=== PATIENT | male | born 1950 | race Two or more races ===

== ENCOUNTER → 2017-06-06 | Outpatient (CLI) | payer MEDICARE ==
[~2017-06-06] MED LIST: ALLO-119 PO; ATOR40TA24 PO; BENZ200C15 PO; CELE-1 PO; CYCL10TA29 PO; DICL100G39 ASDIRECTED; DICL100G39 TD; GLUC1TAB13 PO; GUAI120L3 PO; HYDR-4309 PO; POTA99TA15 PO; PRED20TA6 PO; ROS10 PO; ROSU20TA23 PO; TRAM-420 PO; UBID1CAP3 PO; [UNRECOGNIZED DRUG - CODE] BC
--- NOTE | 2017-06-06 14:33 | RADIOLOGY IMAGING REPORT ---
FACILITY: [facility] PATIENT NAME: Hansel Issa : 1950 MR: [id number] V: [id number] EXAM DATE: ORDERING PHYSICIAN: BRINA FLORES TECHNOLOGIST: Location: [facility] - [place] Patient: Hansel Issa : 1950 Visit/Account:[id number] Date of Sevice: 06/06/2017 Exam type: CHEST PA AND LAT History: influenza Comparison: None. Findings: The lungs are free of acute effusions, infiltrates or edema. The cardiac silhouette is normal in siz e. The trachea is in midline. There are moderate spondylotic changes of the thoracic spine IMPRESSION: 1. No acute cardiopulmonary process is seen Report Dictated By: Vania Ponce MD at 06/06/2017 2:28 PM Report E-Signed By: Vania Ponce MD at 06/06/2017 2:29 PM WSN:[email or web address]
== END ==
LOC: RAD 13:25
PROVIDERS: ATTEND Internal Medicine
DX: J11.1 Influenza due to unidentified influenza virus with other respiratory manifestations (principal)
CPT/HCPCS: 71046

== ENCOUNTER → 2017-08-16 | Outpatient (CLI) | payer MEDICARE ==
[2017-08-16 15:23] LABS: PLATELET COUNT, AUTOMATED 207 K/uL (150-450)
== END ==
LOC: LAB 14:59
PROVIDERS: ATTEND Internal Medicine
DX: M54.10 Radiculopathy, site unspecified (principal); R51 Headache; E78.5 Hyperlipidemia, unspecified
CPT/HCPCS: 36415; 82040; 82247; 82310; 82374; 82435; 82565; 82947; 84075; 84132; 84155; 84295; 84450; 84460; 84520; 85025

== ENCOUNTER → 2017-08-18 | Outpatient (CLI) | payer MEDICARE ==
[~2017-08-18] MED LIST changes: +GADOBENATE 529MG/1ML 15ML VIAL IVP ONE
--- NOTE | 2017-08-18 10:39 | RADIOLOGY IMAGING REPORT ---
FACILITY: [facility] PATIENT NAME: Hansel Issa : 1950 MR: [id number] V: [id number] EXAM DATE: [id number] ORDERING PHYSICIAN: BRINA FLORES TECHNOLOGIST: Location: [facility] [place] Patient: Hansel Issa : 1950 Visit/Account:[id number] Date of Sevice: 08/18/2017 Exam type: ORBITS FOREIGN BODY 1 VIEW History: Pre-MRI Comparison: None. Findings: There are no radiopaque foreign bodies project over the orbits which would preclude this patient unde rgoing MRI. Paranasal sinuses are well aerated. Nasal septum is deviated towards the right superiorly and left inferiorly. Metallic dental hardware is noted. IMPRESSION: 1. There are no radiopaque foreign bodies projecting over the orbits which would preclude this patien t undergoing MRI. Report Dictated By: Josh Shea MD at 08/18/2017 10:33 AM Report E-Signed By: Josh Shea MD at 08/18/2017 10:34 AM WSN:[id number]
--- NOTE | 2017-08-18 12:46 | RADIOLOGY IMAGING REPORT ---
FACILITY: [facility] - [place] PATIENT NAME: Hansel Issa : 1950 MR: [id number] V: [id number] EXAM DATE: [id number] ORDERING PHYSICIAN: BRINA FLORES TECHNOLOGIST: [place] [facility] [place]el Issa : 1950 Visit/Account:[id number] Date of Sevice: 08/18/2017 EXAMINATION: MRI Lumbar spine without intravenous contrast HISTORY: Low back pain. COMPARISON: Lumbar spine radiographs dated 03/14/2017. TECHNIQUE: Multi-planar, multi-sequence lumbar spine MRI was performed without intravenous contrast administration. FINDINGS: Alignment: Normal. Vertebral marrow signal: Negative. Distal thoracic cord: Negative. Conus: negative, terminates at L1 Cauda equina: Thickening of the nerve roots at S1 (series 2, image 7; series 7, image 24) Paravertebral soft tissues: Negative. Visualized abdominal and pelvic structures: Negative. Disc Spaces: Lower thoracic spine: Negative. L1-2: Mild disc height loss with circumferential disc bulge and superimposed left central disc extrus ion. Mild facet hypertrophy. Moderate to severe left lateral recess stenosis with possible impingem ent of the traversing nerve roots. No significant neural foraminal stenosis. L2-3: Mild disc height loss with circumferential disc bulge and facet hypertrophy. Mild spinal canal stenosis. Mild bilateral neural foraminal stenosis. L3-4: Mild circumferential disc bulge and facet hypertrophy. No significant spinal canal stenosis. Mild bilateral neural foraminal stenosis. L4-5: Minimal disc bulge. Mild facet hypertrophy, left greater than right. No significant spinal ca nal stenosis. Mild bilateral neural foraminal stenosis. L5-S1: Small broad-based posterior disc protrusion. Mild facet hypertrophy. No significant spinal c anal stenosis. Mild bilateral neural foraminal stenosis. IMPRESSION: 1. Focal thickening of the nerve roots of the cauda equina at S1 (series 2, image 7; series 7, image 24). Postcontrast lumbar spine MRI is recommended. The axial postcontrast images should extend thr ough the sacrum. Differential diagnosis includes metastasis, primary tumor such as schwannoma, and a rachnoiditis. 2. Multilevel degenerative disc disease and facet hypertrophy, most severe at L1-L2 where there is a left central disc extrusion causing moderate to severe left lateral recess stenosis. Report Dictated By: Jhonatan Grubbs MD at 08/18/2017 12:35 PM Report E-Signed By: Jhonatan Grubbs MD at 08/18/2017 12:42 PM WSN:[id number]
--- NOTE | 2017-08-18 12:49 | RADIOLOGY IMAGING REPORT ---
FACILITY: [facility] PATIENT NAME: Hansel Issa : 1950 MR: [id number] V: [id number] EXAM DATE: ORDERING PHYSICIAN: BRINA FLORES TECHNOLOGIST: Location: [facility] - [place] Patient: Hansel Issa : 1950 Visit/Account:[id number] Date of Sevice: 08/18/2017 EXAMINATION: MRI Brain without intravenous contrast MRI Brain with intravenous contrast HISTORY: Headache. COMPARISON: None. TECHNIQUE: Multi-planar, multi-sequence brain MRI was performed before and after IV gadolinium. CONTRAST: 15 mL of IV MultiHance FINDINGS: Brain volume: Normal. Sagittal midline structures: Negative. Ventricles: Negative. Acute ischemic changes: None. Hemorrhage: Punctate magnetic susceptibility artifact in the right frontoparietal cortex or subcorti amador white matter (series 6, image 20). Masses / edema: None. Enhancement: Negative. Dunne-white: Negative. White matter: Negative. Vessels: Negative. Extra-axial: Negative. Calvarium / scalp: Negative. Skull base: Negative. Visualized sinuses / orbits: Negative. Visualized upper neck: Negative. IMPRESSION: 1. Punctate magnetic susceptibility artifact in the right frontoparietal cortex or subcortical white matter (series 6, image 20), consistent with remote microhemorrhage or calcification. 2. Otherwise normal brain MRI without and with IV contrast. Report Dictated By: Jhonatan Grubbs MD at 08/18/2017 12:42 PM Report E-Signed By: Jhonatan Grubbs MD at 08/18/2017 12:45 PM WSN:[id number]
== END ==
LOC: MRI 01:19
PROVIDERS: ATTEND Internal Medicine
DX: G93.89 Other specified disorders of brain (principal); G83.4 Cauda equina syndrome; M47.896 Other spondylosis, lumbar region; M48.061 Spinal stenosis, lumbar region without neurogenic claudication; J34.2 Deviated nasal septum
CPT/HCPCS: 70030; 70553; 72148; A9577

== ENCOUNTER → 2017-08-22 | Outpatient (CLI) | payer MEDICARE ==
[~2017-08-22] MED LIST changes: +MELO-207 PO
--- NOTE | 2017-08-22 17:11 | RADIOLOGY IMAGING REPORT ---
FACILITY: [facility] PATIENT NAME: Hansel Issa : 1950 MR: [id number] V: [id number] EXAM DATE: ORDERING PHYSICIAN: BRINA FLORES TECHNOLOGIST: [place] [facility] [place] Hansel Issa : 1950 Visit/Account:[id number] Date of Sevice: 08/22/2017 L SPINE W CONTRAST History: Abnormal MRI with radicular symptoms. COMPARISON: 08/18/2017. TECHNIQUE: Axial and sagittal postcontrast MRI was performed through the lumbar spine. 15 mL's of rosa obenate was administered intravenously. Findings: In the area of previously described abnormality involving the nerve roots at the level of S 1, there is minimal enhancement not characteristic for tumor such as schwannoma or metastasis. This m ay represent a small area of inflammation. Suggest repeat imaging with and without contrast in 1 to 2 months to ensure stability or resolution. IMPRESSION: Please see above. Report Dictated By: Feliz Duque MD at 08/22/2017 4:59 PM Report E-Signed By: Feliz Duque MD at 08/22/2017 5:07 PM WSN:[email or web address]
== END ==
LOC: MRI 07:02
PROVIDERS: ATTEND Internal Medicine
DX: R93.7 Abnormal findings on diagnostic imaging of other parts of musculoskeletal system (principal)
CPT/HCPCS: 72149; A9577